=== PATIENT | female | born 1995 | race Caucasian/White ===

== ENCOUNTER → 2024-07-31 | Outpatient (CLI) | payer BC ==
--- NOTE | 2024-07-31 17:32 | XR ---
EXAMINATION TYPE: XR wrist complete BILATERAL DATE OF EXAM: 07/31/2024 4:29 PM COMPARISON: None. CLINICAL INDICATION: Female, 28 years old with history of Z13.220 ENCOUNTER FOR SCREENING FOR LIPOID DISORDE, pain TECHNIQUE: Frontal, lateral and oblique images of the bilateral wrist are obtained. FINDINGS: There is no acute fracture/dislocation evident in the bilateral wrist. The joint spaces i n the bilateral wrist appear within normal limits. The overlying soft tissue appears unremarkable. IMPRESSION: There is no acute fracture or dislocation in the bilateral wrist. [facility], , 07/31/2024 5:29 PM
== END | disposition home or self-care (01) ==
LOC: RADXRMAIN 16:11
PROVIDERS: ATTEND Internal Medicine Geriatric Medicine
DX: Z13.220 Encounter for screening for lipoid disorders (principal)